=== PATIENT | male | born 1960 | race Two or more races ===

== ENCOUNTER 2016-10-02 14:56 | Emergency (ER) | payer MEDICAID ==
[~2016-10-02] VITALS: Ht 170.2 cm; Wt 90.1 kg
[~2016-10-02 14:56] MED LIST: NO HOME MEDS
[2016-10-02] MEDS ORDERED: SODIUM CHLORIDE 0.9% 1,000 ML IV ONE (16:04)
[2016-10-02 16:23] LABS: BASOPHILS % 0.9 % (0.0-2.0); EOSINOPHILS % 1.7 % (0.0-5.0); HEMATOCRIT. 41.1 % (42.0-52.0); HEMOGLOBIN. 14.2 g/dL (14.0-18.0); LYMPHOCYTES % 22.3 % (20.0-50.0); MEAN CORPUSCULAR HEMOGLOBIN 30.4 pg (28.0-32.0); MEAN CORPUSCULAR VOLUME 87.8 fL (80.0-94.0); MEAN PLATELET VOLUME 7.6 fl (7.4-10.4); MONOCYTES % 7.1 % (2.0-8.0); PLATELET 260 x1000/uL (130-400); RED BLOOD CELL COUNT 4.68 mill/uL (4.7-6.1); RED CELL DISTRIBUTION WIDTH 12.8 % (11.6-14.6)
[2016-10-02 16:25] LABS: CHLORIDE 103 mEq/L (98-107)
[2016-10-02 16:29] LABS: CARBON DIOXIDE 26 mEq/L (21-32); ETHANOL BLOOD < 10 mg/dL
[2016-10-02 20:57] LABS: ETHANOL BLOOD < 10 mg/dL
[2016-10-02 21:07] LABS: CLARITY URINE CLEAR (CLEAR); COLOR URINE YELLOW (YELLOW); SPECIFIC GRAVITY URINE 1.012 (1.005-1.030)
[2016-10-02 21:08] LABS: GLUCOSE URINE NEGATIVE (NEGATIVE); KETONES URINE NEGATIVE (NEGATIVE); LEUKOCYTE ESTERASE URINE NEGATIVE (NEGATIVE); NITRITE URINE NEGATIVE (NEGATIVE); OCCULT BLOOD URINE TRACE (NEGATIVE); PROTEIN URINE NEGATIVE (NEGATIVE)
[2016-10-02 21:20] LABS: *AMPHETAMINES SCREEN URINE NEGATIVE (NEGATIVE); *BARBITURATES SCREEN URINE NEGATIVE (NEGATIVE); *BENZODIAZEPINES SCREEN URINE NEGATIVE (NEGATIVE); *COCAINE SCREEN URINE NEGATIVE (NEGATIVE); CANNABINOID URINE SCREEN NEGATIVE (NEGATIVE); METHADONE URINE SCREEN NEGATIVE (NEGATIVE); OPIATES URINE SCREEN NEGATIVE (NEGATIVE); PHENCYCLIDINE URINE SCREEN NEGATIVE (NEGATIVE)
[2016-10-03 11:26] VITALS: BP 151/90
== END 2016-10-03 11:54 | disposition home or self-care (01) ==
LOC: ER 14:56 → CANBEDREQ 23:01 → ER 10-03 11:54
DX: E86.0 Dehydration (principal); F32.9 Major depressive disorder, single episode, unspecified; E11.9 Type 2 diabetes mellitus without complications; R41.0 Disorientation, unspecified; Z79.899 Other long term (current) drug therapy
CPT/HCPCS: 36415; 70450; 71010; 80053; 80305; 80307; 80329; 81001; 82962; 84443; 85025; 93005; 96360; 99285; G0482; J7030; A4315

== ENCOUNTER 2019-03-01 15:35 | Emergency (ER) | payer MEDICAID ==
[~2019-03-01] VITALS: Ht 170.2 cm; Wt 86.0 kg
[2019-03-01 17:52] VITALS: BP 109/73
== END 2019-03-01 17:58 | disposition home or self-care (01) ==
LOC: ER 16:16
DX: S63.91XA Sprain of unspecified part of right wrist and hand, initial encounter (principal); X58.XXXA Exposure to other specified factors, initial encounter; Y93.89 Activity, other specified; Y92.410 Unspecified street and highway as the place of occurrence of the external cause; E11.9 Type 2 diabetes mellitus without complications
CPT/HCPCS: 73110; 73130; 82962; 99283

== ENCOUNTER 2021-08-08 19:22 | Inpatient (IN) | payer MEDICAID, OTHER ==
[~2021-08-08] VITALS: Ht 195.6 cm; Wt 89.8 kg
[2021-08-08] MEDS ORDERED: SODIUM CHLORIDE 0.9% 1,000 ML IV ONE ×3 (20:00→22:00)
[2021-08-08 21:02] LABS: CHLORIDE 112 mEq/L (98-107)
[2021-08-08 21:06] LABS: HEMOGLOBIN. 19.3 g/dL (14.0-18.0); MEAN CORPUSCULAR HEMOGLOBIN 29.7 pg (28.0-32.0); MEAN PLATELET VOLUME 9.4 fl (7.4-10.4); PLATELET 240 x1000/uL (130-400); RED CELL DISTRIBUTION WIDTH 14.9 % (11.6-14.6)
[2021-08-08 21:10] LABS: BETA HYDROXYBUTYRATE 2.9 mMol/L (0.0-0.3); HEMATOCRIT. 61.8 % (42.0-52.0)
[2021-08-08 21:25] LABS: PLATELET ESTIMATE NORMAL
[2021-08-08 21:39] LABS: CLARITY URINE CLEAR (CLEAR); COLOR URINE YELLOW (YELLOW); KETONES URINE TRACE (NEGATIVE); LEUKOCYTE ESTERASE URINE NEGATIVE (NEGATIVE); NITRITE URINE NEGATIVE (NEGATIVE); OCCULT BLOOD URINE NEGATIVE (NEGATIVE); PROTEIN URINE TRACE (NEGATIVE); SPECIFIC GRAVITY URINE 1.031 (1.005-1.030); UROBILINOGEN URINE 0.2 E.U./dL (0.2-1.0)
[2021-08-08] MEDS ORDERED: INSULIN REGULAR 100U/100ML PMX 100 ML IV SCH ×2 (22:00→22:24)
[2021-08-09] MEDS ORDERED: DEXTROSE 50% WATER 50ML SYRINGE IV PRN (05:15)
[2021-08-09] MEDS ORDERED: INSULIN GLARGINE 100 UNITS/ML SUBCUT SCH ×2 (05:15→06:00)
[2021-08-09 05:32] LABS: CHLORIDE 131 mEq/L (98-107)
[2021-08-09] MEDS ORDERED: DEXT 5%/0.45% NACL 1000ML 1,000 ML IV SCH (06:00)
[2021-08-09] MEDS ORDERED: DEXTROSE 5% WATER 1,000 ML IV SCH (07:00)
[2021-08-09] MEDS: BLOOD SUGAR DIAGNOSTIC STRIP TEST SCH ×4 (08:40→20:18)
[2021-08-09 12:00] VITALS: BP 122/84
[2021-08-09] MEDS: INSULIN LISPRO (HIGH DOSE) 100 UNITS/ML SUBCUT SCH ×3 (13:12→20:28)
[2021-08-09 16:00] VITALS: BP 113/76
[2021-08-09 16:54] VITALS: BP 122/84
[2021-08-09] MEDS: INSULIN GLARGINE 100 UNITS/ML SUBCUT SCH ×2 (17:00→20:29)
[2021-08-09] MEDS ORDERED: DOCUSATE SODIUM 100MG CAPSULE PO PRN (18:00)
[2021-08-09] MEDS ORDERED: IPRATROPIUM/ALBUTEROL 0.5-3(2.5)MG/3ML NEB HHN PRN (18:00)
[2021-08-09] MEDS ORDERED: LORAZEPAM 0.5MG TABLET PO PRN (18:00)
[2021-08-09] MEDS ORDERED: ACETAMINOPHEN 325MG TABLET PO PRN ×2 (18:00)
[2021-08-09] MEDS ORDERED: HYDROCODONE/ACETAMINOPHEN 5/325MG TABLET PO PRN (18:00)
[2021-08-09] MEDS ORDERED: ONDANSETRON HCL 4MG/2ML INJ IV PRN (18:00)
[2021-08-09] MEDS ORDERED: INSULIN LISPRO 100 UNITS/ML SUBCUT NR (18:15)
[2021-08-09 20:00] VITALS: BP 96/67
[2021-08-10] VITALS: BP 103/61
[2021-08-10] MEDS: BLOOD SUGAR DIAGNOSTIC STRIP TEST SCH ×2 (00:23→04:00)
[2021-08-10] MEDS: INSULIN LISPRO (HIGH DOSE) 100 UNITS/ML SUBCUT SCH ×2 (00:27→05:01)
[2021-08-10 04:00] VITALS: BP 123/83
[2021-08-10 06:45] LABS: BASOPHILS % 0.7 % (0.0-2.0); EOSINOPHILS % 8.1 % (0.0-5.0); HEMATOCRIT. 50.7 % (42.0-52.0); HEMOGLOBIN. 16.6 g/dL (14.0-18.0); LYMPHOCYTES % 31.4 % (20.0-50.0); MEAN CORPUSCULAR VOLUME 91.4 fL (80.0-94.0); MEAN PLATELET VOLUME 9.2 fl (7.4-10.4); MONOCYTES % 5.9 % (2.0-8.0); NEUTROPHILS % 53.9 % (40.0-76.0); PLATELET 139 x1000/uL (130-400); RED BLOOD CELL COUNT 5.55 mill/uL (4.7-6.1)
[2021-08-10 07:11] LABS: CHLORIDE 119 mEq/L (98-107)
[2021-08-10] MEDS: INSULIN LISPRO 100 UNITS/ML SUBCUT SCH ×2 (07:20→13:12)
[2021-08-10 07:38] LABS: T4 FREE 1.05 ng/dL (0.76-1.46)
[2021-08-10 08:00] VITALS: BP 104/76
[2021-08-10] MEDS ORDERED: INSULIN LISPRO 100 UNITS/ML SUBCUT NR (09:15)
[2021-08-10] MEDS ORDERED: INSULIN GLARGINE 100 UNITS/ML SUBCUT SCH (10:00)
[2021-08-10] MEDS ORDERED: LANTUSUD SUBCUT (10:15)
[2021-08-10 12:15] VITALS: BP 114/77
[2021-08-10] MEDS ORDERED: INSULIN LISPRO 100 UNITS/ML SUBCUT SCH (12:20)
[2021-08-10] MEDS ORDERED: INSULIN LISPRO (LOW DOSE) 100 UNITS/ML SUBCUT SCH (12:20)
[2021-08-10] MEDS ORDERED: BLOOD SUGAR DIAGNOSTIC STRIP TEST SCH (12:20)
[2021-08-10] MEDS ORDERED: INSLIS SUBCUT (12:58)
[2021-08-10 14:53] VITALS: BP 114/77
[2021-08-11 09:11] LABS: PROLACTIN 12.7 ng/mL (4.0-15.2)
[2021-08-12 15:06] LABS: GAD-65 AUTOANTIBODY < 5.0 U/mL (0.0-5.0)
[2021-08-14 04:08] LABS: TESTOSTERONE FREE 6.8 pg/mL (6.6-18.1)
== END 2021-08-10 18:04 | disposition home or self-care (01) | DRG 420 ==
LOC: ER 19:22 → MICUSO 23:22 → 6WST 08-09 10:54
PROVIDERS: ADMIT Internal Medicine; ATTEND Internal Medicine
DX: E11.10 Type 2 diabetes mellitus with ketoacidosis without coma (principal); N17.0 Acute kidney failure with tubular necrosis; E87.0 Hyperosmolality and hypernatremia; K76.0 Fatty (change of) liver, not elsewhere classified; E86.9 Volume depletion, unspecified; D75.1 Secondary polycythemia; D72.829 Elevated white blood cell count, unspecified; E83.52 Hypercalcemia; E86.0 Dehydration; I12.9 Hypertensive chronic kidney disease with stage 1 through stage 4 chronic kidney disease, or unspecified chronic kidney disease; E11.22 Type 2 diabetes mellitus with diabetic chronic kidney disease; N18.9 Chronic kidney disease, unspecified; E86.1 Hypovolemia; E88.09 Other disorders of plasma-protein metabolism, not elsewhere classified; Z79.4 Long term (current) use of insulin; Z80.6 Family history of leukemia; Z80.7 Family history of other malignant neoplasms of lymphoid, hematopoietic and related tissues; Z91.14 Patient's other noncompliance with medication regimen
CPT/HCPCS: 36415; 71045; 76700; 80048; 80053; 81003; 82010; 82533; 82962; 83001; 83002; 83036; 83519; 83880; 84146; 84402; 84403; 84439; 84443; 84481; 84681; 85025; 93005; 93306; 99291; J1815; J7030